=== PATIENT | female | born 1960 | race Caucasian/White ===

== ENCOUNTER 2016-09-09 14:33 | Emergency (ER) | payer BC ==
[~2016-09-09] VITALS: Ht 160 cm; Wt 58.1 kg
[~2016-09-09 14:33] MED LIST: AUGMENTIN 500 M1 TAB PO; BIAXIN250 MG/5 M PO; KEFLEX500 MG PO; PROZAC40 MG PO; SOMA350 MG PO; VICODIN 500 MG-1 TAB PO
[2016-09-09] MEDS ORDERED: ZIAC 2.5 MG-6.21 TAB PO (14:58)
== END 2016-09-09 16:40 | disposition home or self-care (01) ==
LOC: ED 14:33
DX: S93.491A Sprain of other ligament of right ankle, initial encounter (principal); F17.200 Nicotine dependence, unspecified, uncomplicated; X50.9XXA Other and unspecified overexertion or strenuous movements or postures, initial encounter; Y93.89 Activity, other specified; Y92.9 Unspecified place or not applicable; Y99.9 Unspecified external cause status

== ENCOUNTER → 2018-05-28 | Day surgery (SDC) | payer BC ==
[~2018-05-28] VITALS: Ht 160 cm; Wt 56.7 kg
[~2018-05-28] MED LIST changes: +ALPRAZOLAM0.25 M2 PO; +HYDROXYCUT PO; +PROZAC40 M1 PO; -PROZAC40 MG PO; +SIMVASTATIN20 MG PO; +ZIAC 2.5 MG-6.21 TAB PO
--- NOTE | ~2018-05-28 | O ---
[place], [place] OPERATIVE NOTE NAME: RIN CARLSON UNIT #: [id number] ROOM: DOCTOR: DAYRON MONCADA MD BIRTHDATE: [birth year] DOS: 05/28/2018 INDICATIONS: The patient is a 57-year-old patient who presented with chief complaint of change in bowel habits, screening colonoscopy, undergone investigation. ALLERGIES: No known medication. FAMILY HISTORY: Noncontributory. PAST SURGICAL HISTORY: Left leg. PAST MEDICAL HISTORY: Hyperlipidemia, back pain, anxiety. SOCIAL HISTORY: Smoker, alcohol consumer. PROCEDURE: Today's procedure part of investigation is colonoscopy plus piecemeal polypectomy. PREMEDICATION: Propofol. SCOPE: Olympus folding colonoscope 10L video. REPORT: After putting the patient in left lateral position and application of lubricant to the scope, the scope was introduced. Thereafter, under direct visualization, advanced through the length of colon without difficulty. Base of the cecum explored, appendiceal orifice identified, ileocecal valve was defined. Scope was gradually withdrawn back to the sigmoid colon. Sessile polypoid lesion with piecemeal polypectomy removed. The patient extubated, tolerated the procedure well. IMPRESSION: Sessile colonic polyp at sigmoid colon, status post piecemeal polypectomy. PLAN AND DISCUSSION: High fiber fruit diet. ACTIVITY: Ad riri. FOLLOWUP: Routinely with you in office, p.r.n. visit with us in [facility]. I thank you very much again for your kind referral. [place], [place] OPERATIVE NOTE NAME: RIN CARLSON UNIT #: [id number] ROOM: DOCTOR: DAYRON MONCADA MD BIRTHDATE: [birth year] DAYRON MONCADA MD CM:OPRECORD:OPERATIVE NOTE [id number] DAYRON MONCADA MD 05/28/18 1548 interface
[2018-05-28 10:20] VITALS: BP 138/73
[2018-05-28 12:37] VITALS: BP 134/70
[2018-05-28 12:42] VITALS: BP 115/59
[2018-05-28 13:00] VITALS: BP 136/74
== END | disposition home or self-care (01) ==
LOC: SDC 05-25 10:15
DX: K63.5 Polyp of colon (principal); K21.9 Gastro-esophageal reflux disease without esophagitis; I10 Essential (primary) hypertension; F41.9 Anxiety disorder, unspecified; F17.210 Nicotine dependence, cigarettes, uncomplicated; F32.9 Major depressive disorder, single episode, unspecified; F12.90 Cannabis use, unspecified, uncomplicated; E78.5 Hyperlipidemia, unspecified; G43.909 Migraine, unspecified, not intractable, without status migrainosus; Z98.890 Other specified postprocedural states; Z79.899 Other long term (current) drug therapy; Z87.01 Personal history of pneumonia (recurrent); Z72.89 Other problems related to lifestyle

== ENCOUNTER → 2020-06-28 | Outpatient (CLI) | payer BC | END | disposition home or self-care (01) | LOC: MAMMO 00:12 | PROVIDERS: ATTEND Internal Medicine | DX: Z12.31 Encounter for screening mammogram for malignant neoplasm of breast (principal); N64.89 Other specified disorders of breast ==